=== PATIENT | male | born 1970 | race African-American/Black ===

== ENCOUNTER 2023-10-21 02:03 | Emergency (ER) | payer MEDICAID ==
[~2023-10-21] VITALS: Ht 185.4 cm; Wt 90.0 kg
[2023-10-21 02:05] VITALS: O2SAT 98
[2023-10-21 03:07] LABS: CHLORIDE 103 mEq/L (98-107); SODIUM 141 mEq/L (136-145)
[2023-10-21 03:08] LABS: CALCIUM 8.8 mg/dL (8.7-10.4); CARBON DIOXIDE 29 mEq/L (21-32)
[2023-10-21 03:13] LABS: CREATININE 0.9 mg/dL (0.6-1.3); GLUCOSE 78 mg/dL (70-105); UREA NITROGEN BLOOD 14 mg/dL (9-23)
[2023-10-21 03:15] LABS: BASOPHILS % 0.8 % (0.0-2.0); DIFFERENTIAL COMMENT 0; EOSINOPHILS % 1.7 % (0.0-5.0); HEMOGLOBIN. 12.6 g/dL (14.0-18.0); LYMPHOCYTES % 32.5 % (20.0-50.0); MEAN CORPUSCULAR HEMOGLOBIN 32.6 pg (28.0-32.0); MEAN CORPUSCULAR HGB CONC 32.4 g/dL (31.0-37.0); MEAN CORPUSCULAR VOLUME 100.6 fL (80.0-94.0); MEAN PLATELET VOLUME 7.9 fl (7.4-10.4); MONOCYTES % 11.8 % (2.0-8.0); NEUTROPHILS % 53.2 % (40.0-76.0); PLATELET 204 x1000/uL (130-400); RED BLOOD CELL COUNT 3.88 mill/uL (4.7-6.1); RED CELL DISTRIBUTION WIDTH 15.1 % (11.6-14.6)
[2023-10-21 03:54] LABS: ETHANOL BLOOD < 10 mg/dL (<10)
[2023-10-21 05:10] VITALS: BP 97/55; PULSE 100; RESP 16; TEMP 98.2
== END 2023-10-21 06:16 | disposition home or self-care (01) ==
LOC: ER 02:03
DX: S09.90XA Unspecified injury of head, initial encounter (principal); W18.30XA Fall on same level, unspecified, initial encounter; Y93.89 Activity, other specified; Y92.89 Other specified places as the place of occurrence of the external cause; Y99.8 Other external cause status
CPT/HCPCS: 36415; 80048; 80320; 85025; 93005; 99284; G0480